=== PATIENT | male | born 1980 | race African-American/Black ===

== ENCOUNTER 2020-09-30 19:46 | Emergency (ER) | payer OTHER ==
[~2020-09-30] VITALS: Ht 172.7 cm; Wt 90.7 kg
[2020-09-30 20:30] VITALS: BP 165/105
== END 2020-09-30 20:30 | disposition home or self-care (01) ==
LOC: ER 19:46
DX: S60.221A Contusion of right hand, initial encounter (principal); S80.212A Abrasion, left knee, initial encounter; V49.9XXA Car occupant (driver) (passenger) injured in unspecified traffic accident, initial encounter; Y93.89 Activity, other specified; Y92.89 Other specified places as the place of occurrence of the external cause; Y99.8 Other external cause status